=== PATIENT | male | born 1995 | race Caucasian/White ===

== ENCOUNTER 2019-01-10 23:26 | Emergency (ER) | payer OTHER ==
[~2019-01-10] VITALS: Ht 188 cm; Wt 100.0 kg
[2019-01-11 02:03] VITALS: BP 119/78
--- NOTE | 2019-01-11 07:53 | REP ---
Clinical: Pain with excessive exercise Technique: AP, lateral, bilateral oblique views right foot . Findings: The osseous structures and joint spaces are intact and normal. There is no evidence for acute fracture or dislocation. Surrounding soft tissues are unremarkable. No subcutaneous emphysema or radiodense foreign body. Impression: Normal right foot series. No acute fracture or dislocation. Electronically Signed by Aroldo Quintero MD 01/11/2019 07:44 A
== END 2019-01-11 02:05 | disposition home or self-care (01) ==
LOC: M ED 23:26
DX: M25.571 Pain in right ankle and joints of right foot (principal)